=== PATIENT | male | born 1980 | race Caucasian/White ===

== ENCOUNTER 2017-05-08 17:30 | Emergency (ER) | payer BC ==
--- NOTE | 2017-05-08 17:47 | PDOC ---
Rapid Medical Evaluation Time Seen by Provider: 05/08/17 17:47 Medical Evaluation: Allergies Allergy/AdvReac Type Severity Reaction Status Date / Time No Known Allergies Allergy Verified 10/28/14 02:39 05/08/17 17:48 36 year old male 1ppd smoker with chest pain at rest and near syncopal episode yesterday, now with shortness of breath and left arm numbness/pain (0.5/10). Feels "cold." EKG NSR, no ischemic changes -CXR -Labs including CBC, CMP, PT/INR, cardiac profile -To Main ED for further evaluation
[2017-05-08 17:51] VITALS: TEMP 98.1; BMI 22.9
[2017-05-08 18:18] LABS: BASO % 0.5 % (0-2.0); HEMATOCRIT 45.3 % (35.4-49); HEMOGLOBIN 15.8 GM/dL (11.7-16.9); LYMPH % 32.4 % (8-40); MCH 31.9 pg (25.7-33.7); MEAN CELL VOLUME 91.1 fl (80-96); MONO % 7.3 % (3.8-10.2); NEUT % 52.8 % (42.8-82.8); PLATELET COUNT 252 K/MM3 (134-434); RBC 4.97 M/mm3 (4.00-5.60); RDW 12.6 % (11.9-15.9); WHITE BLOOD COUNT 11.4 K/mm3 (4.0-10.0)
[2017-05-08 18:32] LABS: INR 0.97 (0.82-1.09)
[2017-05-08 18:46] LABS: ALBUMIN 4.1 g/dl (3.4-5.0); ANION GAP 4 (8-16); BILIRUBIN,TOTAL 0.2 mg/dL (0.2-1.0); BLOOD UREA NITROGEN 24 mg/dL (7-18); CALCIUM 8.7 mg/dL (8.5-10.1); CHLORIDE 109 mmol/L (98-107); CO2 27 mmol/L (21-32); CREATININE 0.7 mg/dL (0.7-1.3); GLUCOSE,RANDOM 89 mg/dL (74-106); SGOT/AST 15 U/L (15-37); SGPT/ALT 23 U/L (12-78); SODIUM 140 mmol/L (136-145); TOT PROT 7.1 g/dl (6.4-8.2)
[2017-05-08 18:47] LABS: ALK PHOS 66 U/L (45-117)
[2017-05-08] MEDS ORDERED: RANITIDINE HCL 150 MG TABLET (FP) PO ONE (23:55)
[2017-05-09] MEDS ORDERED: RANITIDINE HCL 150 MG TABLET (FP) ONE (00:06)
--- NOTE | 2017-05-09 01:53 | PDOC ---
History of Present Illness - General Chief Complaint: Chest Pain Stated Complaint: CHEST PAIN Time Seen by Provider: 05/08/17 17:47 History Source: Patient Exam Limitations: No Limitations - History of Present Illness Initial Comments: 05/09/17 01:52 Patient is a 36-year-old female male medical history here with complaints of chest pain yesterday. States that about mid day yesterday he had Severe squeezing in his epigastric lower chest central area which lasted for 15 minutes and went away. Since then he has had some shortness of breath and numbness in his left arm. SOB feel as if he has to take a deep breath him. Denies nausea, vomiting, diaphoresis, dizziness, PMD: Dr. Underwood PMHX: as above PSOCHX: (+) cig 3PPD down now to 1 PPD GENERAL/CONSTITUTIONAL: [No fever or chills. No weakness. No weight change.] HEAD, EYES, EARS, NOSE AND THROAT: [No change in vision. No ear pain or discharge. No sore throat.] CARDIOVASCULAR: [No chest pain or shortness of breath.] RESPIRATORY: [No cough, wheezing, or hemoptysis.] GASTROINTESTINAL: [No nausea, vomiting, diarrhea or constipation. No rectal bleeding.] GENITOURINARY: [No dysuria, frequency, or change in urination.] MUSCULOSKELETAL: [No joint or muscle swelling or pain. No neck or back pain.] SKIN AND BREASTS: [No rash or easy bruising.] NEUROLOGIC: [No headache, vertigo, loss of consciousness, or loss of sensation.] PSYCHIATRIC: [No depression or anxiety.] ENDOCRINE: [No increased thirst. No abnormal weight change.] HEMATOLOGIC/LYMPHATIC: [No anemia, easy bleeding, or history of blood clots.] ALLERGIC/IMMUNOLOGIC: [No hives or skin allergy. No latex allergy.] GENERAL: [The patient is awake, alert, and fully oriented, in no acute distress. ] HEAD: [Normal with no signs of trauma.] EYES: [Pupils equal, round and reactive to light, extraocular movements intact, sclera anicteric, conjunctiva clear.] ENT: [Ears normal, nares patent, oropharynx clear without exudates. Moist mucous membranes.] NECK: [Normal range of motion, supple without lymphadenopathy, JVD, or masses.] LUNGS: [Breath sounds equal, clear to auscultation bilaterally. No wheezes, and no crackles.] HEART: [Regular rate and rhythm, normal S1 and S2 without murmur, rub.] ABDOMEN: [Soft, (+) tenderness epigastrum, normoactive bowel sounds. No guarding, no rebound. No masses.] EXTREMITIES: [Normal range of motion, no edema. No clubbing or cyanosis. No cords, erythema, or tenderness.] NEUROLOGICAL: [Cranial nerves II through XII grossly intact. Normal speech, normal gait.] PSYCH: [Normal mood, normal affect.] SKIN: [Warm, Dry, normal turgor, no rashes or lesions noted.] Past History - Past Medical History Allergies/Adverse Reactions: Allergies Allergy/AdvReac Type Severity Reaction Status Date / Time No Known Allergies Allergy Verified 05/08/17 17:51 Home Medications: Ambulatory Orders Erythromycin 0.5% Eye Ointment [Erythromycin 0.5% Eye Ointment -] 1 applic OU TID #1 tube 10/28/14 COPD: No DVT: No Other medical history: denies - Surgical History Appendectomy: Yes - Immunization History Immunization Up to Date: Yes - Suicide/Smoking/Psychosocial Hx Smoking History: Never smoked Have you smoked in the past 12 months: No Number of Cigarettes Smoked Daily: 20 Information on smoking cessation initiated: Yes Hx Alcohol Use: No Drug/Substance Use Hx: No Substance Use Type: None *Physical Exam - Vital Signs Last Vital Signs Temp Pulse Resp BP Pulse Ox 98.1 F 72 17 103/74 98 05/08/17 17:48 05/09/17 02:31 05/09/17 02:31 05/09/17 02:31 05/09/17 02:31 ED Treatment Course - LABORATORY CBC & Chemistry Diagram: 05/08/17 18:13 05/08/17 18:13 - ADDITIONAL ORDERS Additional order review: Laboratory Results 05/09/17 00:55 Troponin I < 0.02 05/08/17 18:13 RBC 4.97 MCV 91.1 MCHC 35.0 RDW 12.6 MPV 8.0 Neutrophils % 52.8 Lymphocytes % 32.4 Monocytes % 7.3 Eosinophils % 7.0 H Basophils % 0.5 - Medications Given in the ED: ED Medications Discontinued Medications Generic Name Dose Route Start Last Admin Trade Name Freq PRN Reason Stop Dose Admin Ranitidine HCl 300 mg 05/08/17 23:55 05/09/17 00:10 Zantac - PO 05/08/17 23:56 300 mg ONCE ONE Administration Medical Decision Making - Medical Decision Making 05/09/17 01:53 Patient is a 36-year-old female male medical history here with complaints of chest pain yesterday, tenderness in the epigastrum and lower chest most likely GI. but has HEART score of 3 will get trop x 2, No likely to be PE, PERC neg. Patient has troponin 2 were negative EKG shows sinus at 70, normal axis, no ST-T wave changes Chest x-ray is negative for any acute disease I discussed the physical exam findings, ancillary test results and final diagnoses with the patient. I answered all of the patient's questions. The patient was satisfied with the care received and felt comfortable with the discharge plan and treatment plan. The Patient agrees to follow up with the primary care physician within 24-72 hours. Inst to follow up with pmd for further eval. *DC/Admit/Observation/Transfer Diagnosis at time of Disposition: Chest pain Qualifiers: Chest pain type: unspecified Qualified Code(s): R07.9 - Chest pain, unspecified - Discharge Dispostion Disposition: HOME Condition at time of disposition: Stable - Referrals - Patient Instructions Printed Discharge Instructions: DI for Chest Pain Additional Instructions: Your Discharge Instructions: You must call primary care physician within 24 hours to arrange follow-up. Return to the Emergency Department with any new, persistent or worsening symptoms, for fever, chills, SOB, dizziness or any other concerning changes that may occur. He must stop smoking and follow-up with cardiology evaluation. - Post Discharge Activity
[2017-05-09 02:31] VITALS: BP 103/74; PULSE 72
--- NOTE | 2017-05-14 01:13 | EKG ---
Test Reason : Blood Pressure : / mmHG Vent. Rate : 070 BPM Atrial Rate : 070 BPM P-R Int : 128 ms QRS Dur : 082 ms QT Int : 390 ms P-R-T Axes : 065 066 071 degrees QTc Int : 421 ms NORMAL SINUS RHYTHM NORMAL ECG WHEN COMPARED WITH ECG OF 08-MAY-2017 17:47, NO SIGNIFICANT CHANGE WAS FOUND Confirmed by SIXTO ERWIN MD ([id number]) on 05/14/2017 1:13:11 AM Referred By: Confirmed By:SIXTO ERWIN MD
--- NOTE | 2017-05-14 01:14 | EKG ---
Test Reason : Blood Pressure : / mmHG Vent. Rate : 076 BPM Atrial Rate : 076 BPM P-R Int : 126 ms QRS Dur : 088 ms QT Int : 356 ms P-R-T Axes : 063 060 066 degrees QTc Int : 400 ms NORMAL SINUS RHYTHM NORMAL ECG NO PREVIOUS ECGS AVAILABLE Confirmed by RIP CORREIA, SIXTO ([id number]) on 05/14/2017 1:14:19 AM Referred By: Confirmed By:SIXTO ERWIN MD
== END 2017-05-09 02:31 | disposition home or self-care (01) ==
LOC: JER 17:30
DX: R07.9 Chest pain, unspecified (principal); F17.210 Nicotine dependence, cigarettes, uncomplicated
CPT/HCPCS: 36415; 71046-TC-FY; 80053; 82550; 84484; 85025; 85610; 93005; 93010; 99282-25